=== PATIENT | male | born 1975 | race Two or more races ===

== ENCOUNTER 2018-07-19 19:47 | Emergency (ER) | payer SELFPAY ==
[~2018-07-19] VITALS: Ht 170.2 cm; Wt 93.8 kg
[2018-07-19 20:38] LABS: BASOPHILS # (AUTO) 0.03 x10^3/uL (0-0.1); BASOPHILS % (AUTO) 0 % (0-1); EOSINOPHILS # (AUTO) 0.06 x10^3/uL (0-0.4); EOSINOPHILS % (AUTO) 1 % (1-7); LYMPHOCYTES # (AUTO) 3.15 x10^3/uL (1-3.4); LYMPHOCYTES % (AUTO) 36 % (22-44); MD NO; MEAN CORPUSCULAR HEMOGLOBIN 29.3 pg (27.5-34.5); MEAN CORPUSCULAR HGB CONC 34.7 g/dL (33.2-36.2); MEAN CORPUSCULAR VOLUME 84.3 fL (81-97); MEAN PLATELET VOLUME 8.1 fL (7.4-10.4); MONOCYTES # (AUTO) 0.75 x10^3/uL (0.2-0.8); MONOCYTES % (AUTO) 8 % (2-9); NEUTROPHILS # (AUTO) 4.89 x10^3/uL (1.8-6.8); NEUTROPHILS % (AUTO) 55 % (42-75); PLATELET COUNT 222 x10^3/uL (130-400); RED BLOOD COUNT 5.44 x10^6/uL (4.38-5.82); RED CELL DISTRIBUTION WIDTH 13.3 % (9.4-14.8)
[2018-07-19] MEDS ORDERED: KETOROLAC 30 MG/1 ML ONE (20:43)
[2018-07-19 20:46] VITALS: BP 119/65
[2018-07-19 20:48] LABS: ALBUMIN 4.1 g/dL (3.4-5.0); ANION GAP 11 mmol/L (5-15); CALCIUM 8.5 mg/dL (8.5-10.1); CHLORIDE 111 mmol/L (98-107)
[2018-07-19 20:51] LABS: HCT (SEDRATE) 45.8 % (39.2-51.8)
[2018-07-19 20:53] LABS: ALANINE AMINOTRANSFERASE 44 U/L (12-78); ALKALINE PHOSPHATASE 87 U/L (45-117); BILIRUBIN,TOTAL 0.6 mg/dL (0.2-1.0); CREATININE 1.06 mg/dL (0.7-1.3); TOTAL PROTEIN 7.7 g/dL (6.4-8.2)
[2018-07-19] MEDS ORDERED: KETOROLAC 30 MG/1 ML IM ONE (21:00)
== END 2018-07-19 21:43 | disposition home or self-care (01) ==
LOC: ED 21:37
DX: M25.512 Pain in left shoulder (principal); M25.511 Pain in right shoulder; M79.605 Pain in left leg; M79.604 Pain in right leg; R53.1 Weakness
CPT/HCPCS: 36415; 80053; 82550; 85025; 85651; 93005; 96372; 99284; J1885